=== PATIENT | female | born 1975 | race Caucasian/White ===

== ENCOUNTER 2019-09-22 19:55 | Inpatient (IN) | payer OTHER ==
[2019-09-22] MEDS ORDERED: ASPIRIN 81 MG CHEWABLE TABLETS PO ONE (21:27)
--- NOTE | 2019-09-22 21:27 | PDOC ---
History of Present Illness - General Chief Complaint: Headache Stated Complaint: CHEST PAIN Time Seen by Provider: 09/22/19 21:07 History Source: Patient Exam Limitations: No Limitations - History of Present Illness Initial Comments: 44 year old female with PMH obesity, HTN, nicotine use, anemia presented to ED for chest pain since 1400 today. Pt reported she was sitting down resting when she developed the pain, it is constant, nonradiating, aggravated by deep inspiration, aggravated by movement, alleviated by ibuprofen (08/22 to 12/23 after taking ibuprofen 400 mg around 1999). Pt denied cough, fever, vomiting, lightheadedness, shortness of breath, abdominal pain, lower extremity swelling, hx of malignancy, hx of DVT/PE, hx of surgery <4 weeks, hx of travel>5 hours, calf pain. She also complained of a headache to her right side of her head since 1600 today, which has improved with ibuprofen. PCP: Lina Cardio: none Past History - Past Medical History Allergies/Adverse Reactions: Allergies Allergy/AdvReac Type Severity Reaction Status Date / Time No Known Allergies Allergy Verified 01/09/16 13:34 Home Medications: Ambulatory Orders Naproxen [Naprosyn -] 500 mg PO BID PRN #14 tablet 01/09/16 - Psycho Social/Smoking Cessation Hx Smoking History: Current every day smoker Have you smoked in the past 12 months: Yes Number of Cigarettes Smoked Daily: 6 Information on smoking cessation initiated: Yes 'Breaking Loose' booklet given: 01/09/16 Hx Alcohol Use: No Drug/Substance Use Hx: No Substance Use Type: None Review of Systems - Review of Systems Able to Perform ROS?: Yes Comments:: ROS General: denied fever, chills, generalized weakness. HEENT: denied sore throat, rhinorrhea, ear pain. Cardiovascular: admitted to chest pain. denied palpitations, syncope, diaphoresis. Respiratory: denied shortness of breath, cough, sputum production, hemoptysis. Gastrointestinal: denied abdominal pain, nausea, vomiting, diarrhea, constipation, blood in stool. Genitourinary: denied dysuria, increased urinary frequency, hematuria, urinary incontinence, flank pain. Back: denied back pain. Musculoskeletal: denied joint pain, muscle pain, joint swelling. Neurological: admitted to headache. denied dizziness, numbness, tingling, weakness. Integumentary: denied rash, laceration, abrasion. Hematologic/Lymphatic: denied bruising or bleeding. PE Constitutional: Well-nourished, Well-developed, appearing stated age. HEENT: head is normocephalic, atraumatic. EOMI. PERRLA. Neck: supple. Full ROM. Cardiovascular: regular heart rhythm. no murmurs. no pericardial friction rub. Respiratory: clear to auscultation bilaterally. no crackles, rhonchi or wheezing. no stridor. Gastrointestinal: soft, nontender. normal bowel sounds. no rebound, guarding, masses. Extremities: peripheral pulses intact. no lower extremity edema. Neurological: CN 2-12 grossly intact. moves all four extremities. Psych: awake, alert, oriented x3. follows commands. answers questions appropriately. *Physical Exam - Vital Signs Last Vital Signs Temp Pulse Resp BP Pulse Ox 98.4 F 87 20 115/73 100 09/22/19 20:10 09/22/19 20:10 09/22/19 20:10 09/22/19 20:10 09/22/19 20:10 ED Treatment Course - LABORATORY CBC & Chemistry Diagram: 09/22/19 22:35 09/22/19 22:35 - RADIOLOGY Radiology Studies Ordered: Category Date Time Status CHEST PA & LAT [RAD] Stat Radiology 09/22/19 21:20 Ordered Medical Decision Making - Medical Decision Making 44 year old female with above PMH presented to ED for constant chest pain since 1400 today associated with right sided headache. Initial Vital Signs Temp Pulse Resp BP Pulse Ox 98.4 F 87 20 115/73 100 09/22/19 20:10 09/22/19 20:10 09/22/19 20:10 09/22/19 20:10 09/22/19 20:10 Afebrile. No tachycardia. No tachypnea. No hypotension. No hypoxia on room air. EKG performed at 1958: rate 90, regular rhythm, normal axis, normal intervals, no acute ST changes. Labs ordered: CBC, CMP, Mag/Phos, Troponin, BNP, serum Imaging ordered: CXR Medications ordered: ASA 324 chew PO once, reglan 10 mg IV once, Tylenol 1000 mg IV once CXR my view: sharp costophrenic angles. no cardiomegaly. no infiltrate. no pulmonary vascular congestion. -Pending official report 09/22/19 23:00 CBC WBC 5.7 K/mm3 (4.0-10.0) 09/22/19 22:35 RBC 3.02 M/mm3 (3.60-5.2) L 09/22/19 22:35 Hgb 4.7 GM/dL (10.7-15.3) L* 09/22/19 22:35 Hct 17.8 % (32.4-45.2) L 09/22/19 22:35 MCV 59.0 fl (80-96) L 09/22/19 22:35 MCH 15.6 pg (25.7-33.7) L 09/22/19 22:35 MCHC 26.5 g/dl (32.0-36.0) L 09/22/19 22:35 RDW 27.1 % (11.6-15.6) H 09/22/19 22:35 Absolute Neuts (auto) 3.5 K/mm3 (1.5-8.0) 09/22/19 22:35 Neutrophils % 60.2 % (42.8-82.8) 09/22/19 22:35 Lymphocytes % 24.0 % (8-40) 09/22/19 22:35 Monocytes % 11.5 % (3.8-10.2) H 09/22/19 22:35 Eosinophils % 3.3 % (0-4.5) 09/22/19 22:35 Basophils % 1.0 % (0-2.0) 09/22/19 22:35 Nucleated RBC % 1 % (0-0) H 09/22/19 22:35 No leukocytosis. Microcytic anemia. Pt reported she recently had her menstrual period, which was very heavy, now almost finish and spotting. She denied blood in stool. Pt consented for 2PRBC. 09/22/19 23:39 CMP Sodium 139 mmol/L (136-145) 09/22/19 22:35 Potassium 4.4 mmol/L (3.5-5.1) 09/22/19 22:35 Chloride 111 mmol/L (98-107) H 09/22/19 22:35 Carbon Dioxide 25 mmol/L (21-32) 09/22/19 22:35 Anion Gap 4 MMOL/L (8-16) L 09/22/19 22:35 BUN 8.9 mg/dL (7-18) 09/22/19 22:35 Creatinine 0.7 mg/dL (0.55-1.3) 09/22/19 22:35 Est GFR (CKD-EPI)AfAm 121.27 09/22/19 22:35 Est GFR (CKD-EPI)NonAf 104.64 09/22/19 22:35 Random Glucose 92 mg/dL (74-106) 09/22/19 22:35 Calcium 8.2 mg/dL (8.5-10.1) L 09/22/19 22:35 Phosphorus 3.6 mg/dL (2.5-4.9) 09/22/19 22:35 Magnesium 2.0 mg/dL (1.8-2.4) 09/22/19 22:35 Total Bilirubin 0.2 mg/dL (0.2-1) 09/22/19 22:35 AST 16 U/L (15-37) 09/22/19 22:35 ALT 17 U/L (13-61) 09/22/19 22:35 Alkaline Phosphatase 66 U/L (45-117) 09/22/19 22:35 Troponin I 0.02 ng/ml (0.00-0.05) 09/22/19 22:35 B-Natriuretic Peptide 96.2 pg/ml (5-125) 09/22/19 22:35 Total Protein 5.9 g/dl (6.4-8.2) L 09/22/19 22:35 Albumin 3.0 g/dl (3.4-5.0) L 09/22/19 22:35 No clinically significant electrolyte abnormalities. No Lena. No transaminitis. Troponin wnl. BNP wnl. Pt to be admitted for symptomatic anemia requiring blood transfusion. Dr. Jackson paged. 09/22/19 23:43 Sign out given to Dr. Jackson, who agrees with plan for admission. She requested iron studies to be added on to blood work. Pending admission. Discharge - Discharge Information Problems reviewed: Yes Clinical Impression/Diagnosis: Anemia, Chest pain Condition: Stable - Admission Yes - Follow up/Referral Referrals: Gianni Juárez MD [Staff Physician] - Jaja Elliott MD [Staff Physician] - Josue Love MD [Staff Physician] - Forrest Senior MD [Staff Physician] - - Patient Discharge Instructions - Post Discharge Activity Work/Back to School Note: Back to Work
[2019-09-22] MEDS ORDERED: ACETAMINOPHEN 1000 MG/100 ML VIAL (NON FORMULARY) IVPB ONE (21:28)
[2019-09-22] MEDS ORDERED: METOCLOPRAMIDE HCL INJECTION 10 MG/2 ML VIAL IVPUSH ONE (21:28)
[2019-09-22] MEDS ORDERED: METOCLOPRAMIDE HCL INJECTION 10 MG/2 ML VIAL ONE (21:31)
[2019-09-22] MEDS ORDERED: ACETAMINOPHEN INJECTION 100 ML IVPB ONE (21:31)
[2019-09-22] MEDS ORDERED: ASPIRIN 81 MG CHEWABLE TABLETS ONE (21:31)
--- NOTE | 2019-09-22 22:28 | PDOC ---
Documentation entered by Emily Keith SCRIBE, acting as scribe for Mandeep Contreras MD. Mandeep Contreras MD: This documentation has been prepared by the opalibe, Emily Keith SCRIBE, under my direction and personally reviewed by me in its entirety. I confirm that the documentation accurately reflects all work, treatment, procedures, and medical decision making performed by me. Attending Attestation - Resident Resident Name: Sharmaine Camejo - ED Attending Attestation I have performed the following: I have examined & evaluated the patient, The case was reviewed & discussed with the resident, I agree w/resident's findings & plan, Exceptions are as noted - HPI HPI: 09/22/19 22:29 44 F with h/o HTN, obesity, presenting to ED with midsternal chest pain x 1 day. Pt reports sudden onset constant pain since 2 PM. Pt was resting at the time. Denies exertional chest pain. Notes that the pain is worse with direct palpation and deep inspiration. Pt denies any leg swelling. No recent travel/ immobilization. No h/o DVT/PE. Not on OCPs or estrogen therapy. Pt denies SOB. Denies F/C. - Physicial Exam PE: 09/22/19 22:30 "GENERAL: Awake, alert, and fully oriented, in no acute distress. HEAD: No signs of trauma EYES: PERRLA, EOMI, sclera anicteric, conjunctiva clear ENT: Auricles normal inspection, hearing grossly normal, nares patent, oropharynx clear without exudates. Moist mucosa NECK: Nontender, no stepoffs, Normal ROM, supple, no lymphadenopathy, JVD, or masses LUNGS: Breath sounds equal, clear to auscultation bilaterally. No wheezes, and no crackles HEART: + TTP over sternum, Regular rate and rhythm, normal S1 and S2, no murmurs , rubs or gallops ABDOMEN: Soft, nontender, normoactive bowel sounds. No guarding, no rebound. No masses EXTREMITIES: Normal range of motion, no edema. No clubbing or cyanosis. No cords, erythema, or tenderness NEUROLOGICAL: Cranial nerves II through XII intact. 5/5 strength and sensation in all extremities, Normal speech, normal gait, normal cerebellar function SKIN: Warm, Dry, normal turgor, no rashes or lesions noted. - Medical Decision Making 11/10/19 22:30 44 F with midsternal chest pain. ACS unlikely as EKG is wnl. Will check single trop as onset of pain was >6 hours prior to arrival. PE unlikely as PERC score is 0. Pt with no clinical signs of DVT. Suspect msk pain. - Labs, trop - CXR - Motrin 09/22/19 23:45 Labs notable for Hb 4.7 Pt reports heavy menstrual periods, denies any dark stools or BRBPR Pt consented for transfusion
[2019-09-22 22:49] LABS: EOS % 3.3 % (0-4.5); MCHC 26.5 g/dl (32.0-36.0); MEAN PLT VOLUME 9.4 fl (7.5-11.1); MONO % 11.5 % (3.8-10.2); NEUT % 60.2 % (42.8-82.8); PLATELET COUNT 114 K/MM3 (134-434); RBC 3.02 M/mm3 (3.60-5.2); RDW 27.1 % (11.6-15.6); WHITE BLOOD COUNT 5.7 K/mm3 (4.0-10.0)
[2019-09-22 22:52] LABS: MCH 15.6 pg (25.7-33.7)
[2019-09-22 22:54] LABS: HEMATOCRIT 17.8 % (32.4-45.2); HEMOGLOBIN 4.7 GM/dL (10.7-15.3)
[2019-09-22 23:14] LABS: INR 1.11 (0.83-1.09); PROTHROMBIN TIME (PATIENT) 13.1 SEC (9.7-13.0)
[2019-09-22 23:16] LABS: ACTIVATED PTT 26.3 SECONDS (25.2-36.5)
[2019-09-22 23:33] LABS: BILIRUBIN,TOTAL 0.2 mg/dL (0.2-1); BLOOD UREA NITROGEN 8.9 mg/dL (7-18); CALCIUM 8.2 mg/dL (8.5-10.1); CREATININE 0.7 mg/dL (0.55-1.3); PHOSPHOROUS 3.6 mg/dL (2.5-4.9); POTASSIUM 4.4 mmol/L (3.5-5.1); TOT PROT 5.9 g/dl (6.4-8.2)
[2019-09-22 23:54] LABS: ANISOCYTOSIS 3+; MACROCYTOSIS 1+; OVALOCYTE 1+; PLATELET ESTIMATE SLT DECREASE; TEAR DROP CELLS 1+
[2019-09-23 04:22] VITALS: BMI 40.1
[2019-09-23 08:49] LABS: HEMATOCRIT 19.8 % (32.4-45.2); MEAN CELL VOLUME 60.9 fl (80-96); MEAN PLT VOLUME 9.1 fl (7.5-11.1); PLATELET COUNT 117 K/MM3 (134-434); RBC 3.24 M/mm3 (3.60-5.2); RDW 32.1 % (11.6-15.6); WHITE BLOOD COUNT 4.9 K/mm3 (4.0-10.0)
[2019-09-23 09:38] LABS: MCH 17.1 pg (25.7-33.7)
[2019-09-23 09:41] LABS: HEMOGLOBIN 5.5 GM/dL (10.7-15.3)
[2019-09-23] MEDS: FERROUS SO4 325 MG TABLET (FP) PO SCH ×2 (10:04→21:25)
[2019-09-23] MEDS: FOLIC ACID 1 MG TABLET (FP) PO SCH (10:04)
[2019-09-23] MEDS: ASCORBIC ACID 500 MG TABLET (FP) PO SCH (10:04)
[2019-09-23] MEDS ORDERED: IRON SUCROSE INJECTION 200 MG in SODIUM CHLORIDE 90 ML IVPB ONE (12:13)
[2019-09-23 17:57] LABS: BASO % 0.9 % (0-2.0); EOS % 2.2 % (0-4.5); HEMATOCRIT 23.8 % (32.4-45.2); LYMPH % 20.6 % (8-40); MCHC 29.3 g/dl (32.0-36.0); MEAN PLT VOLUME 9.6 fl (7.5-11.1); NEUT % 66.3 % (42.8-82.8); PLATELET COUNT 117 K/MM3 (134-434); RBC 3.71 M/mm3 (3.60-5.2)
[2019-09-23 17:58] LABS: MCH 18.7 pg (25.7-33.7)
[2019-09-24] MEDS: ACETAMINOPHEN 325 MG TABLET (FP) PO PRN ×3 (02:05→20:37)
[2019-09-24 08:03] LABS: CALCIUM 8.8 mg/dL (8.5-10.1); CREATININE 0.7 mg/dL (0.55-1.3); MAGNESIUM 1.9 mg/dL (1.8-2.4)
[2019-09-24] MEDS ORDERED: IRON SUCROSE INJECTION 200 MG in SODIUM CHLORIDE 90 ML IVPB ONE (08:23)
--- NOTE | 2019-09-24 08:43 | HP ---
Admitting History and Physical - Admission History of Present Illness: 44 F with h/o HTN, obesity, presenting to ED with midsternal chest pain x 1 day. Pt reports sudden onset constant pain since 2 PM. Pt was resting at the time. Denies exertional chest pain. Notes that the pain is worse with direct palpation and deep inspiration. Pt denies any leg swelling. No recent travel/ immobilization. No h/o DVT/PE. Not on OCPs or estrogen therapy. Pt denies SOB. Denies F/C. History Source: Patient Limitations to Obtaining History: No Limitations - Past Medical History Reproductive: Yes: Fibroids ...LMP: 09/20/19 (reports heavy menses - with similar events earlier this yr ) ...LMP Comment: she required blood transfusion and was place on IRON supplement , complies. ...: No Heme/Onc: Yes: Anemia - Past Surgical History Past Surgical History: Yes: - Smoking History Smoking history: Current every day smoker Have you smoked in the past 12 months: Yes Aproximately how many cigarettes per day: 6 - Alcohol/Substance Use Hx Alcohol Use: No - Social History Usual Living Arrangement: Yes: Alone ADL: Independent Home Medications - Allergies Allergies/Adverse Reactions: Allergies Allergy/AdvReac Type Severity Reaction Status Date / Time pineapple Allergy Intermediate Swelling Verified 09/25/19 12:46 - Home Medications Home Medications: Ambulatory Orders Naproxen [Naprosyn -] 500 mg PO BID PRN #14 tablet 01/09/16 Lisinopril 5 mg PO DAILY 09/23/19 Review of Systems - Review of Systems Constitutional: reports: Malaise, Weakness Eyes: reports: No Symptoms HENT: reports: No Symptoms Neck: reports: No Symptoms Cardiovascular: reports: Chest Pain, Palpitations. denies: Shortness of Breath Respiratory: reports: No Symptoms Gastrointestinal: reports: No Symptoms Genitourinary: reports: No Symptoms Breasts: reports: No Symptoms Reported Musculoskeletal: reports: No Symptoms Integumentary: reports: No Symptoms Neurological: reports: No Symptoms Endocrine: reports: No Symptoms Hematology/Lymphatic: reports: No Symptoms Psychiatric: reports: No Symptoms Physical Examination Vital Signs: Vital Signs Temperature 98.3 F 09/24/19 06:00 Pulse Rate 77 09/24/19 06:00 Respiratory Rate 18 09/24/19 06:00 Blood Pressure 144/78 09/24/19 06:00 O2 Sat by Pulse Oximetry (%) 98 09/23/19 21:00 Constitutional: Yes: Well Nourished, No Distress, [place], Obese Eyes: Yes: Conjunctiva Clear, EOM Intact HENT: Yes: Atraumatic, Normocephalic Neck: Yes: Supple, Trachea Midline Cardiovascular: Yes: Regular Rate and Rhythm, Murmur Respiratory: Yes: Regular, CTA Bilaterally Gastrointestinal: Yes: Normal Bowel Sounds, Soft, Abdomen, Obese, Other ( surgical scar c-sec classical incision) ...Rectal Exam: Yes: Deferred, Other (per ER guiac negative) Renal/: Yes: WNL Breast(s): Yes: WNL Musculoskeletal: Yes: WNL Extremities: Yes: WNL Edema: No Peripheral Pulses WNL: Yes Integumentary: Yes: WNL Neurological: Yes: Alert, Oriented ...Motor Strength: WNL Psychiatric: Yes: Alert, Oriented Labs: CBC, BMP 09/23/19 17:15 09/24/19 07:05 Problem List - Problems (1) Anemia Assessment/Plan: severe anemia blood transfusion Iron / folate/ TIBC / retic count Code(s): D64.9 - ANEMIA, UNSPECIFIED Qualifiers: Iron deficiency anemia type: chronic blood loss (2) Chest pain Assessment/Plan: chest pain resolved after transfusion Problems reviewed: Yes Code(s): R07.9 - CHEST PAIN, UNSPECIFIED Qualifiers: Chest pain type: chest pain due to myocardial ischemia Ischemic chest pain type: unspecified angina pectoris type Qualified Code(s): I25.9 - Chronic ischemic heart disease, unspecified (3) Menorrhagia Problems reviewed: Yes Code(s): N92.0 - EXCESSIVE AND FREQUENT MENSTRUATION WITH REGULAR CYCLE Qualifiers: Menorrahagia type: with regular cycle Qualified Code(s): N92.0 - Excessive and frequent menstruation with regular cycle (4) Fibroid uterus Code(s): D25.9 - LEIOMYOMA OF UTERUS, UNSPECIFIED Qualifiers: Uterine leiomyoma location: intramural and submucous Qualified Code(s): D25.1 - Intramural leiomyoma of uterus; D25.0 - Submucous leiomyoma of uterus
--- NOTE | 2019-09-24 08:47 | PN ---
Progress Note (short form) - Note Progress Note: patient seen and examined in room feeling better today reports vaginal bleeding last 2 day subsided last night Vital Signs Period Temp Pulse Resp BP Sys/Lynch Pulse Ox Last 24 Hr 97.7 F-98.9 F 74-88 18-18 123-144/63-78 97-98 sitting in bed neck - jvd heart S1/S2 lungs clear bilat abd soft non tender ext no edema / no calf tenderness Active Medications Acetaminophen (Tylenol -) 650 mg PO Q4H PRN PRN Reason: PAIN LEVEL 1-5 Last Admin: 09/24/19 02:05 Dose: 650 mg Ascorbic Acid (Vitamin C -) 500 mg PO DAILY [facility] Last Admin: 09/24/19 09:25 Dose: 500 mg Ferrous Sulfate (Feosol -) 325 mg PO BID [facility] Last Admin: 09/24/19 09:25 Dose: 325 mg Folic Acid (Folic Acid -) 1 mg PO DAILY [facility] Last Admin: 09/24/19 09:25 Dose: 1 mg Active Medications Acetaminophen (Tylenol -) 650 mg PO Q4H PRN PRN Reason: PAIN LEVEL 1-5 Last Admin: 09/24/19 02:05 Dose: 650 mg Ascorbic Acid (Vitamin C -) 500 mg PO DAILY [facility] Last Admin: 09/24/19 09:25 Dose: 500 mg Ferrous Sulfate (Feosol -) 325 mg PO BID [facility] Last Admin: 09/24/19 09:25 Dose: 325 mg Folic Acid (Folic Acid -) 1 mg PO DAILY [facility] Last Admin: 09/24/19 09:25 Dose: 1 mg CBC, BMP 09/23/19 17:15 09/24/19 07:05 s/p 3 units pRBC venofer 200 mg X 1 Abnormal Lab Results 09/22/19 09/23/19 09/23/19 22:35 08:25 08:25 RBC 3.24 L Hgb 5.5 L* Hct 19.8 L MCV 60.9 L MCH 17.1 L MCHC 28.0 L RDW 32.1 H Plt Count 117 L Retic Count 2.53 H Chloride Anion Gap BUN Iron 11 L TIBC 452 H Iron Saturation 2 L Unsaturated IBC 441 H Ferritin 1.8 L 09/23/19 09/24/19 17:15 07:05 RBC Hgb 7.0 L Hct 23.8 L D MCV 64.0 L MCH 18.7 L MCHC 29.3 L RDW 34.0 H Plt Count 117 L Retic Count Chloride 109 H Anion Gap 3 L BUN 6.0 L Iron TIBC Iron Saturation Unsaturated IBC Ferritin Problem List - Problems (1) Anemia Code(s): D64.9 - ANEMIA, UNSPECIFIED (2) Chest pain Code(s): R07.9 - CHEST PAIN, UNSPECIFIED
[2019-09-24] MEDS: ASCORBIC ACID 500 MG TABLET (FP) PO SCH (09:25)
[2019-09-24] MEDS: FOLIC ACID 1 MG TABLET (FP) PO SCH (09:25)
[2019-09-24] MEDS: FERROUS SO4 325 MG TABLET (FP) PO SCH ×2 (09:25→21:06)
--- NOTE | 2019-09-24 11:26 | EKG ---
Test Reason : Blood Pressure : / mmHG Vent. Rate : 090 BPM Atrial Rate : 090 BPM P-R Int : 156 ms QRS Dur : 086 ms QT Int : 366 ms P-R-T Axes : 050 031 052 degrees QTc Int : 447 ms NORMAL SINUS RHYTHM NORMAL ECG NO PREVIOUS ECGS AVAILABLE Confirmed by MD Asim, Michael ([id number]) on 09/24/2019 11:25:46 AM Referred By: Confirmed By:Michael Dailey MD
--- NOTE | 2019-09-24 18:43 | CON.OBG ---
Consult Consult Specialty:: Gynecology Reason for Consultation:: PMB. fibroids - History Source History Provided By: Patient - Past Medical History ...LMP: 09/20/19 (reports heavy menses - with similar events earlier this yr ) ...LMP Comment: she required blood transfusion and was place on IRON supplement , complies. ...: No - Past Surgical History Past Surgical History: Yes: - Alcohol/Substance Use Hx Alcohol Use: No - Smoking History Smoking history: Current every day smoker Have you smoked in the past 12 months: Yes Aproximately how many cigarettes per day: 6 - Social History ADL: Independent Home Medications - Allergies Allergies/Adverse Reactions: Allergies Allergy/AdvReac Type Severity Reaction Status Date / Time No Known Allergies Allergy Verified 01/09/16 13:34 - Home Medications Home Medications: Ambulatory Orders Naproxen [Naprosyn -] 500 mg PO BID PRN #14 tablet 01/09/16 Lisinopril 5 mg PO DAILY 09/23/19 Physical Exam-REPORTER Vital Signs: Vital Signs Temperature 98.3 F 09/24/19 18:20 Pulse Rate 78 09/24/19 18:20 Respiratory Rate 18 09/24/19 18:20 Blood Pressure 151/69 09/24/19 18:20 O2 Sat by Pulse Oximetry (%) 100 09/24/19 09:00 Labs: CBC, BMP 09/23/19 17:15 09/24/19 07:05 Assessment/Plan Leiomyomatous Uterus PMB Plan
[2019-09-25] MEDS: ACETAMINOPHEN 325 MG TABLET (FP) PO PRN ×2 (03:42→13:52)
[2019-09-25] MEDS: ASCORBIC ACID 500 MG TABLET (FP) PO SCH ×2 (08:34→10:11)
[2019-09-25] MEDS: FERROUS SO4 325 MG TABLET (FP) PO SCH ×2 (08:35→10:11)
[2019-09-25] MEDS: FOLIC ACID 1 MG TABLET (FP) PO SCH ×2 (08:35→10:11)
[2019-09-25] MEDS ORDERED: IRON SUCROSE INJECTION 200 MG in SODIUM CHLORIDE 90 ML IVPB ONE (10:44)
[2019-09-25 11:44] LABS: EOS % 2.9 % (0-4.5); HEMATOCRIT 30.8 % (32.4-45.2); HEMOGLOBIN 9.4 GM/dL (10.7-15.3); LYMPH % 14.8 % (8-40); MCH 20.9 pg (25.7-33.7); MCHC 30.7 g/dl (32.0-36.0); MEAN PLT VOLUME 9.4 fl (7.5-11.1); MONO % 7.6 % (3.8-10.2); NEUT % 73.7 % (42.8-82.8); PLATELET COUNT 222 K/MM3 (134-434); RBC 4.53 M/mm3 (3.60-5.2); WHITE BLOOD COUNT 11.7 K/mm3 (4.0-10.0)
[2019-09-25 12:45] LABS: ANISOCYTOSIS 3+; MACROCYTOSIS 0; PLATELET ESTIMATE NORMAL; TEAR DROP CELLS 1+
--- NOTE | 2019-09-25 13:45 | DS ---
Physical Examination Vital Signs: Vital Signs Temperature 98.2 F 09/25/19 12:12 Pulse Rate 78 09/25/19 12:12 Respiratory Rate 20 09/25/19 12:12 Blood Pressure 148/82 09/25/19 12:12 O2 Sat by Pulse Oximetry (%) 99 09/25/19 09:00 Findings/Remarks: 44 F with h/o HTN, obesity, presenting to ED with midsternal chest pain x 1 day. Pt reports sudden onset constant pain since 2 PM. Pt was resting at the time. Denies exertional chest pain. Notes that the pain is worse with direct palpation and deep inspiration. Pt denies any leg swelling. No recent travel/ immobilization. No h/o DVT/PE. Not on OCPs or estrogen therapy. Pt denies SOB. Denies F/C. patient admitted transfused 4units Prbc - [employer] J[employer] ESTIMATOR consult appreciated - will follow up as out patient ' Iron infusion X 3 says Clinically improved / vaginal bleeding subsided Will need out patient follow up with [employer] J[employer] ESTIMATOR Constitutional: Yes: Well Nourished, No Distress, Calm Eyes: Yes: Conjunctiva Clear, EOM Intact HENT: Yes: Atraumatic, Normocephalic Neck: Yes: Supple, Trachea Midline Cardiovascular: Yes: Regular Rate and Rhythm Respiratory: Yes: Regular, CTA Bilaterally Gastrointestinal: Yes: Normal Bowel Sounds, Abdomen, Obese ...Rectal Exam: Yes: Deferred Renal/: Yes: WNL Musculoskeletal: Yes: WNL Extremities: Yes: WNL Edema: No Peripheral Pulses WNL: Yes Neurological: Yes: Alert, Oriented ...Motor Strength: WNL Psychiatric: Yes: Alert, Oriented Labs: CBC, BMP 09/25/19 11:20 09/24/19 07:05 Discharge Summary Problems reviewed: Yes Reason For Visit: ANEMIA,CHEST PAIN,fibroid uterus Current Active Problems Anemia (Acute) Chest pain (Acute) fibroid uterus obesity Condition: Stable - Instructions Disposition: HOME - Home Medications Comprehensive Discharge Medication List: Ambulatory Orders Naproxen [Naprosyn -] 500 mg PO BID PRN #14 tablet 01/09/16 Lisinopril 5 mg PO DAILY 09/23/19
[2019-09-25 14:34] VITALS: BP 154/79; PULSE 72; TEMP 98.5
== END 2019-09-25 18:24 | disposition home or self-care (01) | DRG 812 ==
LOC: JER 19:55 → JERBED 23:43 → J7W 09-23 03:17
PROVIDERS: ADMIT Family Medicine; ATTEND Family Medicine
PROC: 30233N1 Transfusion of Nonautologous Red Blood Cells into Peripheral Vein, Percutaneous Approach (ICD-10-PCS; principal; 2019-09-23)
DX: D64.9 Anemia, unspecified (principal); Z68.41 Body mass index [BMI] 40.0-44.9, adult; R07.89 Other chest pain; I10 Essential (primary) hypertension; E66.01 Morbid (severe) obesity due to excess calories; F17.210 Nicotine dependence, cigarettes, uncomplicated; D25.1 Intramural leiomyoma of uterus; D25.0 Submucous leiomyoma of uterus; N92.0 Excessive and frequent menstruation with regular cycle; I25.9 Chronic ischemic heart disease, unspecified
CPT/HCPCS: 36415; 36430; 36511; 71046-TC-FY; 76830-TC; 76856-TC; 80048; 80053; 82728; 83540; 83550; 83735; 83880; 84100; 84443; 84466; 84484; 84703; 85025; 85027; 85044; 85610; 85730; 86850; 86870; 86900; 86901; 86902; 86922; 93005; 93010; 96365; 99284-25; J0131; J1756; P9038; P9058

== ENCOUNTER 2021-06-05 07:42 | Emergency (ER) | payer OTHER ==
[2021-06-05 07:57] VITALS: BP 135/82; PULSE 90; TEMP 98.1; BMI 40.8
[2021-06-05] MEDS ORDERED: ACETAMINOPHEN 325 MG TABLET (FP) PO ONE (08:12)
[2021-06-05] MEDS ORDERED: ACETAMINOPHEN 325 MG TABLET (FP) ONE (08:14)
== END 2021-06-05 09:26 | disposition home or self-care (01) ==
LOC: JER 07:42
DX: S93.402A Sprain of unspecified ligament of left ankle, initial encounter (principal)
CPT/HCPCS: 73610-TC-LT-FY; 73630-TC-LT; 99284-25

== ENCOUNTER 2021-10-29 14:05 | Observation (INO) | payer OTHER ==
[2021-10-29 15:06] VITALS: BMI 41.5
[2021-10-29 18:05] LABS: BASO % 0.6 % (0-2.0); EOS % 2.8 % (0-4.5); HEMATOCRIT 22.3 % (32.4-45.2); LYMPH % 35.4 % (8-40); MCHC 28.8 g/dl (32.0-36.0); MEAN CELL VOLUME 63.7 fl (80-96); MEAN PLT VOLUME 9.7 fl (7.5-11.1); MONO % 11.4 % (3.8-10.2); NEUT % 49.8 % (42.8-82.8); RDW 24.9 % (11.6-15.6); WHITE BLOOD COUNT 4.7 K/mm3 (4.0-10.0)
[2021-10-29 18:11] LABS: MCH 18.4 pg (25.7-33.7)
[2021-10-29 18:12] LABS: HEMOGLOBIN 6.4 GM/dL (10.7-15.3)
[2021-10-29 18:15] LABS: CALCIUM 8.6 mg/dL (8.5-10.1)
[2021-10-29 18:16] LABS: ALBUMIN 3.2 g/dl (3.4-5.0)
[2021-10-29 18:19] LABS: CREATININE 0.9 mg/dL (0.55-1.3)
[2021-10-29 18:21] LABS: BILIRUBIN,TOTAL 0.2 mg/dL (0.2-1); TOT PROT 6.5 g/dl (6.4-8.2)
[2021-10-29 19:02] LABS: ANISOCYTOSIS 3+; MACROCYTOSIS 0; OVALOCYTE 1+; PLATELET ESTIMATE DECREASED; TARGET CELLS 2+; TEAR DROP CELLS 1+
[2021-10-29 19:06] LABS: PLATELET COUNT 136 10^3/uL (134-434)
[2021-10-29] MEDS ORDERED: METOPROLOL TARTRATE 5 MG/5 ML VIAL IVPUSH ONE (20:40)
[2021-10-29] MEDS ORDERED: LACTATED RINGERS SOLUTION 1,000 ML IV SCH (21:15)
[2021-10-29] MEDS ORDERED: FERRIC CARBOXYMALTOSE 750 MG/15 ML VIAL IVPB ONE (21:30)
[2021-10-29] MEDS ORDERED: FERRIC CARBOXYMALTOSE 750 MG in SODIUM CHLORIDE 250 ML IVPB ONE (22:15)
[2021-10-29] MEDS: SODIUM CHLORIDE 1,000 ML IV SCH (23:41)
[2021-10-29 23:49] LABS: URINE APPEARANCE CLEAR; URINE BILIRUBIN NEGATIVE (NEGATIVE); URINE COLOR YELLOW; URINE GLUCOSE (UA) NEGATIVE (NEGATIVE); URINE KETONE NEGATIVE (NEGATIVE); URINE LEUK ESTERASE NEGATIVE (NEGATIVE); URINE NITRITE NEGATIVE (NEGATIVE); URINE PROTEIN NEGATIVE (NEGATIVE); URINE UROBILINOGEN 0.2 mg/dL (0.2-1.0)
[2021-10-30] MEDS: PANTOPRAZOLE 40 MG TABLET PO SCH (10:33)
[2021-10-30 10:43] LABS: HEMATOCRIT 24.1 % (32.4-45.2); HEMOGLOBIN 7.3 GM/dL (10.7-15.3); MCHC 30.4 g/dl (32.0-36.0); MEAN CELL VOLUME 65.3 fl (80-96); MEAN PLT VOLUME 9.4 fl (7.5-11.1); PLATELET COUNT 111 10^3/uL (134-434); RBC 3.69 M/mm3 (3.60-5.2); RDW 25.9 % (11.6-15.6); WHITE BLOOD COUNT 4.3 K/mm3 (4.0-10.0)
[2021-10-30 10:44] LABS: MCH 19.8 pg (25.7-33.7)
[2021-10-30 11:09] LABS: ALBUMIN 3.3 g/dl (3.4-5.0); BLOOD UREA NITROGEN 8.9 mg/dL (7-18); CALCIUM 8.8 mg/dL (8.5-10.1)
[2021-10-30 11:12] LABS: PHOSPHOROUS 3.4 mg/dL (2.5-4.9)
[2021-10-30 11:13] LABS: CREATININE 0.7 mg/dL (0.55-1.3)
[2021-10-30 11:15] LABS: BILIRUBIN,TOTAL 0.3 mg/dL (0.2-1); TOT PROT 6.3 g/dl (6.4-8.2)
[2021-10-30] MEDS: SODIUM CHLORIDE 1,000 ML IV SCH (17:19)
[2021-10-30] MEDS ORDERED: IRON SUCROSE INJECTION 200 MG in SODIUM CHLORIDE 90 ML IVPB ONE (19:00)
[2021-10-31 10:17] LABS: HEMATOCRIT 27.1 % (32.4-45.2); HEMOGLOBIN 8.1 GM/dL (10.7-15.3); MCHC 29.8 g/dl (32.0-36.0); MEAN CELL VOLUME 66.7 fl (80-96); MEAN PLT VOLUME 9.7 fl (7.5-11.1); PLATELET COUNT 76 10^3/uL (134-434); RBC 4.06 M/mm3 (3.60-5.2); RDW 25.7 % (11.6-15.6)
[2021-10-31 10:28] LABS: MCH 19.9 pg (25.7-33.7); WHITE BLOOD COUNT 5.3 K/mm3 (4.0-10.0)
[2021-10-31 10:43] LABS: CALCIUM 8.6 mg/dL (8.5-10.1)
[2021-10-31 10:44] LABS: BLOOD UREA NITROGEN 7.8 mg/dL (7-18)
[2021-10-31 10:47] LABS: CREATININE 0.7 mg/dL (0.55-1.3)
[2021-10-31] MEDS: PANTOPRAZOLE 40 MG TABLET PO SCH (11:15)
[2021-10-31 12:10] LABS: ANISOCYTOSIS 1+; MACROCYTOSIS 1+; PLATELET ESTIMATE DECREASED
[2021-10-31 15:23] VITALS: BP 132/76; PULSE 76; TEMP 98.2
== END 2021-10-31 13:06 | disposition home or self-care (01) ==
LOC: JER 14:05 → JERBED 17:31 → J5S 10-30 05:11
PROVIDERS: ADMIT Internal Medicine; ATTEND Internal Medicine
PROC: 30233N1 Transfusion of Nonautologous Red Blood Cells into Peripheral Vein, Percutaneous Approach (ICD-10-PCS; principal; 2021-10-29)
PROC: 3E033GC Introduction of Other Therapeutic Substance into Peripheral Vein, Percutaneous Approach (ICD-10-PCS; 2021-10-29)
DX: D50.0 Iron deficiency anemia secondary to blood loss (chronic) (principal); I10 Essential (primary) hypertension; F17.210 Nicotine dependence, cigarettes, uncomplicated; D25.9 Leiomyoma of uterus, unspecified; M62.81 Muscle weakness (generalized); R53.83 Other fatigue; R51.9 Headache, unspecified; R06.02 Shortness of breath; N92.0 Excessive and frequent menstruation with regular cycle; E66.01 Morbid (severe) obesity due to excess calories; Z68.41 Body mass index [BMI] 40.0-44.9, adult
CPT/HCPCS: 36415; 36430; 36511; 80048; 80053; 81003; 82272; 82728; 83540; 83550; 83735; 84100; 85025; 85027; 86850; 86870; 86900; 86901; 86902; 86922; 93005; 93010; 97116-GP; 97161-GP; 99285-25; C9803; G0378; J1439; J1756; P9038; P9058; U0003; U0005

== ENCOUNTER 2022-04-27 13:00 | Observation (INO) | payer OTHER ==
[2022-04-27 13:12] VITALS: BMI 41.3
[2022-04-27 14:42] LABS: BASO % 0.6 % (0-2.0); EOS % 3.5 % (0-4.5); HEMATOCRIT 21.4 % (32.4-45.2); LYMPH % 19.7 % (8-40); MCHC 28.4 g/dl (32.0-36.0); MEAN CELL VOLUME 63.9 fl (80-96); MEAN PLT VOLUME 9.7 fl (7.5-11.1); MONO % 10.6 % (3.8-10.2); NEUT % 65.6 % (42.8-82.8); RBC 3.34 M/mm3 (3.60-5.2); RDW 28.6 % (11.6-15.6); WHITE BLOOD COUNT 5.1 K/mm3 (4.0-10.0)
[2022-04-27 14:45] LABS: MCH 18.2 pg (25.7-33.7)
[2022-04-27 14:46] LABS: HEMOGLOBIN 6.1 GM/dL (10.7-15.3)
[2022-04-27 14:49] LABS: INR 1.19 (0.83-1.09); PROTHROMBIN TIME (PATIENT) 13.7 SEC (9.7-13.0)
[2022-04-27 14:52] LABS: ACTIVATED PTT 27.5 SECONDS (25.2-36.5)
[2022-04-27 15:09] LABS: CALCIUM 8.8 mg/dL (8.5-10.1)
[2022-04-27 15:10] LABS: ALBUMIN 3.4 g/dl (3.4-5.0); BLOOD UREA NITROGEN 7.6 mg/dL (7-18)
[2022-04-27 15:13] LABS: CREATININE 0.7 mg/dL (0.55-1.3)
[2022-04-27 15:14] LABS: BILIRUBIN,TOTAL 0.2 mg/dL (0.2-1); TOT PROT 6.5 g/dl (6.4-8.2)
[2022-04-27 15:18] LABS: ANISOCYTOSIS 3+; MACROCYTOSIS 0; OVALOCYTE 1+
[2022-04-27 15:27] LABS: PLATELET COUNT 112 10^3/uL (134-434)
[2022-04-27 15:28] LABS: PLATELET ESTIMATE DECREASED
[2022-04-27] MEDS ORDERED: SODIUM CHLORIDE 1,000 ML IV SCH ×2 (16:30→18:33)
[2022-04-27] MEDS ORDERED: PANTOPRAZOLE 40 MG TABLET PO ONE (18:34)
[2022-04-27] MEDS: PANTOPRAZOLE 40 MG TABLET PO SCH (18:36)
[2022-04-28 07:29] LABS: BASO % 0.7 % (0-2.0); EOS % 4.8 % (0-4.5); LYMPH % 30.8 % (8-40); MCHC 30.3 g/dl (32.0-36.0); MEAN CELL VOLUME 65.6 fl (80-96); MEAN PLT VOLUME 9.9 fl (7.5-11.1); MONO % 10.3 % (3.8-10.2); NEUT % 53.4 % (42.8-82.8); PLATELET COUNT 129 10^3/uL (134-434); RBC 3.51 M/mm3 (3.60-5.2); RDW 29.6 % (11.6-15.6); WHITE BLOOD COUNT 4.3 K/mm3 (4.0-10.0)
[2022-04-28 07:53] LABS: CALCIUM 8.7 mg/dL (8.5-10.1)
[2022-04-28 07:55] LABS: BLOOD UREA NITROGEN 7.1 mg/dL (7-18)
[2022-04-28 07:59] LABS: CREATININE 0.7 mg/dL (0.55-1.3)
[2022-04-28 08:02] LABS: MCH 19.9 pg (25.7-33.7)
[2022-04-28] MEDS: PANTOPRAZOLE 40 MG TABLET PO SCH (09:06)
[2022-04-28] MEDS ORDERED: IRON SUCROSE INJECTION 300 MG in SODIUM CHLORIDE 250 ML IVPB ONE (12:32)
[2022-04-29 06:38] VITALS: BP 136/68; PULSE 73; TEMP 98.4
[2022-04-29] MEDS ORDERED: FE POLYSAC/CYANOCOBAL/FA COMBO CAPSULE PO SCH (07:00)
[2022-04-29] MEDS ORDERED: IRON SUCROSE INJECTION 300 MG in SODIUM CHLORIDE 235 ML IVPB ONE (08:30)
[2022-04-29 09:34] LABS: HEMATOCRIT 26.3 % (32.4-45.2); MCH 20.7 pg (25.7-33.7); MCHC 30.6 g/dl (32.0-36.0); MEAN CELL VOLUME 67.7 fl (80-96); MEAN PLT VOLUME 9.3 fl (7.5-11.1); PLATELET COUNT 135 10^3/uL (134-434); RBC 3.88 M/mm3 (3.60-5.2); RDW 30.8 % (11.6-15.6); WHITE BLOOD COUNT 7.6 K/mm3 (4.0-10.0)
[2022-04-29 10:35] LABS: ANISOCYTOSIS 3+; MACROCYTOSIS 0; TEAR DROP CELLS 1+
[2022-04-29] MEDS: PANTOPRAZOLE 40 MG TABLET PO SCH (10:37)
== END 2022-04-29 13:51 | disposition home or self-care (01) ==
LOC: JER 13:00 → JERBED 15:11 → J8W 04-28 08:29
PROVIDERS: ADMIT Internal Medicine; ATTEND Internal Medicine
PROC: 30233N1 Transfusion of Nonautologous Red Blood Cells into Peripheral Vein, Percutaneous Approach (ICD-10-PCS; principal; 2022-04-27)
PROC: 3E033GC Introduction of Other Therapeutic Substance into Peripheral Vein, Percutaneous Approach (ICD-10-PCS; 2022-04-27)
PROC: 3E0337Z Introduction of Electrolytic and Water Balance Substance into Peripheral Vein, Percutaneous Approach (ICD-10-PCS; 2022-04-27)
DX: D50.9 Iron deficiency anemia, unspecified (principal); N93.9 Abnormal uterine and vaginal bleeding, unspecified; D25.9 Leiomyoma of uterus, unspecified; E66.01 Morbid (severe) obesity due to excess calories; Z68.41 Body mass index [BMI] 40.0-44.9, adult; D69.6 Thrombocytopenia, unspecified; N92.1 Excessive and frequent menstruation with irregular cycle; R06.00 Dyspnea, unspecified; F17.210 Nicotine dependence, cigarettes, uncomplicated; Z91.018 Allergy to other foods
CPT/HCPCS: 36415; 36430; 80048; 80053; 82728; 83540; 83550; 85025; 85610; 85730; 86850; 86870; 86900; 86901; 86902; 86922; 93005; 93010; 99285-25; C9803-CS; G0378; J1756; P9058; U0003; U0005

== ENCOUNTER 2022-05-09 04:42 | Inpatient (IN) | payer OTHER ==
[2022-05-04 12:02] VITALS: BMI 40.3
[2022-05-09] MEDS ORDERED: CEFAZOLIN 2 GM in DEXTROSE 5%-WATER - 100 ML IVPB ONE (06:30)
[2022-05-09] MEDS ORDERED: ACETAMINOPHEN 1000 MG/100 ML BAG IVPB ONE ×2 (06:30→12:00)
[2022-05-09] MEDS ORDERED: GABAPENTIN 300 MG CAPSULE PO ONE (06:30)
[2022-05-09] MEDS ORDERED: TRANEXAMIC ACID 1000 MG/10 ML VIAL IVPUSH ONE (06:30)
[2022-05-09] MEDS ORDERED: ceFAZolin SODIUM 1 GM VIAL ONE (06:48)
[2022-05-09] MEDS ORDERED: MIDAZOLAM HCL 2 MG/2 ML SINGLE DOSE VIAL ONE ×3 (07:51→08:06)
[2022-05-09] MEDS ORDERED: BUPIVACAINE HCL/PF 0.25% (2.5MG/ML) 10 ML VIAL ONE (07:53)
[2022-05-09] MEDS ORDERED: BUPIVACAINE LIPOSOME/PF (EXPAREL) 266 MG/20 ML VIAL ONE (07:53)
[2022-05-09] MEDS ORDERED: SODIUM CHLORIDE 0.9% P/F 10 ML VIAL IJ ONE (08:01)
[2022-05-09 08:07] LABS: HEMATOCRIT 31.3 % (32.4-45.2); HEMOGLOBIN 9.4 GM/dL (10.7-15.3); MCH 21.3 pg (25.7-33.7); MCHC 30.2 g/dl (32.0-36.0); MEAN CELL VOLUME 70.6 fl (80-96); MEAN PLT VOLUME 9.5 fl (7.5-11.1); PLATELET COUNT 44 10^3/uL (134-434); RBC 4.43 M/mm3 (3.60-5.2); RDW 30.5 % (11.6-15.6); WHITE BLOOD COUNT 3.9 K/mm3 (4.0-10.0)
[2022-05-09] MEDS ORDERED: PROPOFOL 20 ML ONE ×3 (08:07)
[2022-05-09] MEDS ORDERED: ROCURONIUM BROMIDE 50 MG/5 ML SYRINGE ONE (08:07)
[2022-05-09] MEDS ORDERED: LIDOCAINE HCL/PF 2% SDV 5ML VIAL ONE (08:07)
[2022-05-09] MEDS ORDERED: HEPARIN NA (PORCINE) 5,000 UNITS/ML 1ML VIAL ONE (08:51)
[2022-05-09] MEDS ORDERED: ceFAZolin SODIUM 1 GM VIAL IVPB ONE (09:19)
[2022-05-09] MEDS ORDERED: NEOSTIGMINE METHYLSULFATE 0.5 MG/ML - 10 ML MDV ONE (10:05)
[2022-05-09] MEDS ORDERED: GLYCOPYRROLATE 0.2 MG/1 ML VIAL ONE (10:05)
[2022-05-09] MEDS ORDERED: IBUPROFEN 800 MG/8 ML IJ IVPB ONE (10:22)
[2022-05-09] MEDS ORDERED: KETOROLAC TROMETHAMINE 30 MG/1 ML VIAL ONE (10:25)
[2022-05-09] MEDS ORDERED: oxyCODONE HCL 5 MG TABLET PO PRN ×2 (10:45)
[2022-05-09] MEDS ORDERED: ACETAMINOPHEN 500 MG TABLET (FP) PO SCH (10:45)
[2022-05-09] MEDS ORDERED: ONDANSETRON 4 MG/2 ML VIAL IVPUSH PRN (10:45)
[2022-05-09] MEDS: LACTATED RINGERS SOLUTION 1,000 ML IV SCH ×2 (11:30→23:12)
[2022-05-09] MEDS ORDERED: FENTANYL CITRATE/PF 50 MCG/ML VIAL ONE (11:38)
[2022-05-09] MEDS: CEFAZOLIN SODIUM 2 GM in DEXTROSE 5%-WATER 100 ML IVPB SCH ×2 (15:24→23:42)
[2022-05-09] MEDS: ACETAMINOPHEN 500 MG TABLET (FP) PO SCH ×2 (16:17→23:11)
[2022-05-09 17:18] LABS: BASO % 0.2 % (0-2.0); EOS % 0.7 % (0-4.5); HEMATOCRIT 30.8 % (32.4-45.2); HEMOGLOBIN 9.2 GM/dL (10.7-15.3); LYMPH % 10.9 % (8-40); MCHC 29.9 g/dl (32.0-36.0); MEAN CELL VOLUME 70.3 fl (80-96); MEAN PLT VOLUME 10.2 fl (7.5-11.1); MONO % 6.4 % (3.8-10.2); NEUT % 81.8 % (42.8-82.8); RBC 4.38 M/mm3 (3.60-5.2); RDW 30.7 % (11.6-15.6); WHITE BLOOD COUNT 9.1 K/mm3 (4.0-10.0)
[2022-05-09 17:36] LABS: BLOOD UREA NITROGEN 9.1 mg/dL (7-18); CALCIUM 8.7 mg/dL (8.5-10.1)
[2022-05-09 17:39] LABS: CREATININE 0.7 mg/dL (0.55-1.3)
[2022-05-09 17:59] LABS: ANISOCYTOSIS 2+; MACROCYTOSIS 1+; OVALOCYTE 1+; TEAR DROP CELLS 1+
[2022-05-09 18:00] LABS: PLATELET ESTIMATE SLT DECREASE
[2022-05-09 18:01] LABS: PLATELET COUNT 43 10^3/uL (134-434)
[2022-05-09] MEDS: IBUPROFEN 800 MG/8 ML IJ IVPB SCH (20:17)
[2022-05-10] MEDS: IBUPROFEN 800 MG/8 ML IJ IVPB SCH (04:36)
[2022-05-10] MEDS: ACETAMINOPHEN 500 MG TABLET (FP) PO SCH ×4 (05:31→22:47)
[2022-05-10 08:20] LABS: CALCIUM 8.6 mg/dL (8.5-10.1)
[2022-05-10 08:21] LABS: BLOOD UREA NITROGEN 7.9 mg/dL (7-18)
[2022-05-10 08:24] LABS: CREATININE 0.7 mg/dL (0.55-1.3)
[2022-05-10 09:04] LABS: HEMATOCRIT 27.4 % (32.4-45.2); HEMOGLOBIN 8.4 GM/dL (10.7-15.3); MCH 21.4 pg (25.7-33.7); MCHC 30.7 g/dl (32.0-36.0); MEAN CELL VOLUME 69.7 fl (80-96); RBC 3.93 M/mm3 (3.60-5.2); RDW 30.7 % (11.6-15.6); WHITE BLOOD COUNT 10.1 K/mm3 (4.0-10.0)
[2022-05-10 09:43] LABS: MEAN PLT VOLUME 10.8 fl (7.5-11.1); PLATELET COUNT 39 10^3/uL (134-434)
[2022-05-10] MEDS ORDERED: ENOXAPARIN NA (PORCINE) 40 MG/0.4 ML DISP.SYRIN SQ SCH (11:00)
[2022-05-10] MEDS: PANTOPRAZOLE 40 MG TABLET PO SCH (11:08)
[2022-05-10] MEDS: FE POLYSAC/CYANOCOBAL/FA COMBO CAPSULE PO SCH (11:12)
[2022-05-11] MEDS: IBUPROFEN 800 MG/8 ML IJ IVPB SCH ×3 (04:06→20:03)
[2022-05-11] MEDS: ACETAMINOPHEN 500 MG TABLET (FP) PO SCH ×4 (04:07→22:16)
[2022-05-11 09:15] LABS: BASO % 0.2 % (0-2.0); EOS % 1.5 % (0-4.5); LYMPH % 9.2 % (8-40); MCH 21.5 pg (25.7-33.7); MCHC 30.7 g/dl (32.0-36.0); MEAN CELL VOLUME 69.8 fl (80-96); MEAN PLT VOLUME 10.8 fl (7.5-11.1); MONO % 8.3 % (3.8-10.2); NEUT % 80.8 % (42.8-82.8); RBC 3.73 M/mm3 (3.60-5.2); RDW 30.1 % (11.6-15.6)
[2022-05-11 09:24] LABS: PLATELET COUNT 34 10^3/uL (134-434)
[2022-05-11] MEDS: FE POLYSAC/CYANOCOBAL/FA COMBO CAPSULE PO SCH (09:58)
[2022-05-11] MEDS: PANTOPRAZOLE 40 MG TABLET PO SCH (09:58)
[2022-05-11] MEDS ORDERED: IRON SUCROSE INJECTION 200 MG in SODIUM CHLORIDE 90 ML IVPB ONE (20:00)
[2022-05-12] MEDS: ACETAMINOPHEN 500 MG TABLET (FP) PO SCH ×2 (06:36→10:04)
[2022-05-12] MEDS: IBUPROFEN 800 MG/8 ML IJ IVPB SCH ×2 (06:37→08:22)
[2022-05-12] MEDS: PANTOPRAZOLE 40 MG TABLET PO SCH (11:00)
[2022-05-12] MEDS: FE POLYSAC/CYANOCOBAL/FA COMBO CAPSULE PO SCH (11:00)
[2022-05-12 14:39] VITALS: BP 129/76; PULSE 77; TEMP 98.9
== END 2022-05-12 17:49 | disposition home or self-care (01) | DRG 742 ==
LOC: J2C 04:42 → J3W 14:17
PROVIDERS: ADMIT Obstetrics & Gynecology; ATTEND Obstetrics & Gynecology
PROC: 0UT10ZZ Resection of Left Ovary, Open Approach (ICD-10-PCS; 2022-05-09)
PROC: 0UT60ZZ Resection of Left Fallopian Tube, Open Approach (ICD-10-PCS; 2022-05-09)
PROC: 0UT90ZZ Resection of Uterus, Open Approach (ICD-10-PCS; principal; 2022-05-09 08:30)
DX: D25.9 Leiomyoma of uterus, unspecified (principal); Z68.41 Body mass index [BMI] 40.0-44.9, adult; N92.0 Excessive and frequent menstruation with regular cycle; E66.01 Morbid (severe) obesity due to excess calories; D69.6 Thrombocytopenia, unspecified; D50.0 Iron deficiency anemia secondary to blood loss (chronic)
CPT/HCPCS: 36415; 80048; 81025; 85025; 85027; 86022; 86850; 86870; 86900; 86901; 86902; 88302-TC; 88305-TC; 88307-TC; 94010; 94760; J1644; J1756